=== PATIENT | female | born 1980 | race Two or more races ===

== ENCOUNTER 2022-04-15 11:34 | Emergency (ER) | payer OTHER ==
[~2022-04-15] VITALS: Ht 172.7 cm; Wt 81.6 kg
== END 2022-04-15 14:39 | disposition home or self-care (01) ==
LOC: ER 11:34
DX: K29.70 Gastritis, unspecified, without bleeding (principal); R10.13 Epigastric pain; R11.10 Vomiting, unspecified; Z88.2 Allergy status to sulfonamides